=== PATIENT | female | born 1965 | race Caucasian/White ===

== ENCOUNTER 2017-10-24 19:06 | Emergency (ER) | payer BC ==
[2017-10-24] MEDS ORDERED: Diazepam TAB(*) 5 MG PO ONE (22:03)
[2017-10-24] MEDS ORDERED: Ketorolac INJ* 60 MG/2 ML VIAL IM ONE (22:03)
--- NOTE | 2017-10-24 22:39 | ED ---
Back Pain - HPI Summary HPI Summary: Patient here with pain across her lower back 2 days. She reports she was twisting and lifting yesterday when she had pain. This has persisted despite rest and ibuprofen. She is a history of straining her back in the past which improved with rest and time. She denies radiating symptoms of pain as well as numbness tingling or weakness and no change in bowel or bladder habits. She reports she is most comfortable lying flat on her back and has most pain when she is trying to transition from sitting to standing. - History of Current Complaint Chief Complaint: EDBackInjuryPain Stated Complaint: LOW BACK PAIN HEADACHE Time Seen by Provider: 10/24/17 21:43 Hx Obtained From: Patient Pain Intensity: 10 - Allergies/Home Medications Allergies/Adverse Reactions: Allergies Allergy/AdvReac Type Severity Reaction Status Date / Time codeine Allergy Nausea Verified 10/24/17 19:20 PMH/Surg Hx/FS Hx/Imm Hx Previously Healthy: Yes Endocrine/Hematology History: Denies: Hx Diabetes Cardiovascular History: Denies: Hx Hypertension, Hx Pacemaker/ICD Musculoskeletal History: Reports: Hx Back Problems - lumbar strain in 2013 - no residual issues Sensory History: Denies: Hx Hearing Aid Psychiatric History: Denies: Hx Panic Disorder - Cancer History Hx Chemotherapy: No Hx Radiation Therapy: No - Surgical History Surgery Procedure, Year, and Place: UTERINE ABLATION 1-2 YRS AGO; C SECTION X3 Infectious Disease History: No Infectious Disease History: Denies: Traveled Outside the [place] in Last 30 Days - Family History Known Family History: Positive: None - Social History Occupation: 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 Negative: Decreased ROM, Edema Skin: Negative Neurological: Negative Psychological: Normal All Other Systems Reviewed And Are Negative: Yes Physical Exam Triage Information Reviewed: Yes Vital Signs On Initial Exam: Initial Vitals Temp Pulse Resp BP Pulse Ox 99.9 F 104 20 122/74 99 10/24/17 19:18 10/24/17 19:18 10/24/17 19:18 10/24/17 19:18 10/24/17 19:18 Vital Signs Reviewed: Yes Appearance: Positive: Well-Appearing, Pain Distress, Obese Skin: Positive: Warm, Skin Color Reflects Adequate Perfusion, Dry Head/Face: Positive: Normal Head/Face Inspection Eyes: Positive: Normal, EOMI ENT: Positive: Hearing grossly normal Respiratory/Lung Sounds: Positive: Breath Sounds Present Cardiovascular: Positive: Normal, Pulses are Symmetrical in both Upper and Lower Extremities. Negative: Leg Edema Left, Leg Edema Right Abdomen Description: Positive: Nontender, Soft Musculoskeletal: Positive: Strength/ROM Intact - can move LE's, bear weight, Pain @ - soft tissues of lumbar region - no spinous pp tenderness Neurological: Positive: Normal, Sensory/Motor Intact, Alert, Oriented to Person Place, Time, CN Intact II-III Psychiatric: Positive: Normal Diagnostics - Vital Signs Vital Signs Temp Pulse Resp BP Pulse Ox 10/24/17 22:15 16 10/24/17 19:18 99.9 F 104 20 122/74 99 - Laboratory Lab Statement: Any lab studies that have been ordered have been reviewed, and results considered in the medical decision making process. Back Pain Course/Dx - Diagnoses Provider Diagnoses: Lumbar strain Discharge - Sign-Out/Discharge Documenting (check all that apply): Discharge/Admit/Transfer - Discharge Plan Condition: Stable Disposition: HOME Prescriptions: Cyclobenzaprine TAB* [Flexeril 10 MG TAB*] 10 mg PO TID PRN #15 tab PRN Reason: Pain Ibuprofen TAB* [Motrin TAB* 800 MG] 800 mg PO Q8HR PRN #20 tab PRN Reason: Pain Lidocaine PATCH 5%* [Lidoderm 5% Patch*] 1 patch TRANSDERM DAILY PRN #15 patch PRN Reason: Pain Patient Education Materials: Low Back Strain (ED) Referrals: Nam Santiago MD [Primary Care Provider] - - Billing Disposition and Condition Condition: STABLE Disposition: HOME
[2017-10-24] MEDS ORDERED: Lidocaine PATCH 5%* 1 PATCH TRANSDERM SCH (23:00)
[2017-10-24] MEDS ORDERED: Cyclobenzaprine TAB* 10 MG PO ONE (23:07)
[2017-10-24 23:43] VITALS: BP 130/95
== END 2017-10-24 23:42 | disposition home or self-care (01) ==
LOC: ED 19:06
DX: S39.012A Strain of muscle, fascia and tendon of lower back, initial encounter (principal); Z88.5 Allergy status to narcotic agent; X50.0XXA Overexertion from strenuous movement or load, initial encounter; Y92.9 Unspecified place or not applicable
CPT/HCPCS: 96372; 99282; A9270-GY; J1885

== ENCOUNTER 2018-06-02 19:48 | Emergency (ER) | payer BC, OTHER ==
[2018-06-02 20:12] VITALS: BP 156/80
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
== END 2018-06-02 20:20 | disposition home health service (06) ==
LOC: UCCORT 19:48
DX: S09.93XA Unspecified injury of face, initial encounter (principal); R10.84 Generalized abdominal pain; V47.0XXA Car driver injured in collision with fixed or stationary object in nontraffic accident, initial encounter; Y92.410 Unspecified street and highway as the place of occurrence of the external cause; Z88.5 Allergy status to narcotic agent; M06.9 Rheumatoid arthritis, unspecified
CPT/HCPCS: 99212; G0463

== ENCOUNTER 2018-06-28 18:04 | Emergency (ER) | payer BC, OTHER ==
--- OUTSIDE RECORDS SUMMARY | 2018-06-28 18:13 | XMS REPORT | Continuity of Care Document ---
:1965 External Reference #:[id number] Author Name Libertad Duenas Care Team Providers Name Role Phone Sang Stevens MD Care Team Information [employer] Unavailable Nam Santiago MD Primary Care Physician Unavailable Payers Type Date Identification Numbers Payment Provider Subscriber Onset: 2018 Policy Number: [id number] No Fault/Ck Harris Insurance PayID: [id number] [address] [address] [place] [address] Advance Directives Description No Information Available Problems Description No Information Family History Date Family Member(s) Problem(s) Comments Father due to Unknown Causes () - age 54 Mother due to Cancer () - age 71 First Sister due to Cancer () - age 54 Social History Type Date Description Comments Sex Unknown Tobacco Use Start: Unknown Never Smoked Cigarettes ETOH Use Current Alcohol Use - 1-3 Days A Week. Recreational Drug Use Denies Drug Use Allergies, Adverse Reactions, Alerts Date Description Reaction Status Severity Comments 06/04/2018 Codeine Nausea Active Medications Medication Date Status Form Strength Qnty SIG Indications Ordering Provider Methotrexate Active Tablets 2.5mg 8 tabs by Unknown 0 mouth every tues. Immunizations Description No Information Available Vital Signs Date Vital Result Comment 06/04/2018 8:24am Weight 221.00 lb Height 63 inches 5'3" BMI (Body Mass Index) 39.1 kg/m2 BP Systolic 117 mmHg BP Diastolic 85 mmHg Heart Rate 74 /min O2 % BldC Oximetry 99 % Body Temperature 97.3 F Pain Level 5 Results Description No Information Available Procedures Date Code Description Status 06/02/2018 [id number] Bone Mineral Density Test Completed 06/02/2018 [id number] Diabetic Retinal Eye Exam Completed 06/02/2018 [id number] Diabetic Foot Exam Completed Encounters Description No Information Available Plan of Treatment No Information Available
[2018-06-28 18:30] VITALS: BP 158/94
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
[2018-06-28] MEDS ORDERED: Ibuprofen TAB* 600 MG PO ONE (19:40)
--- NOTE | 2018-06-29 08:26 | UC ---
- Progress Note Progress Note: XR: IMPRESSION: Possible nondisplaced fracture involving the proximal pole of the right hand proximal pole second metacarpal. If the patient's symptoms persist, follow-up imaging is recommended. Pt was treated appropriately as there was a suspicion of fx at visit yesterday. No change in plan of care, but can call to let her know the final reading. Course/Dx - Diagnoses Provider Diagnoses: Sprain of right hand Discharge - Sign-Out/Discharge Documenting (check all that apply): Post-Discharge Follow Up All imaging exams completed and their final reports reviewed: Yes - Discharge Plan Condition: Stable Disposition: HOME Prescriptions: Ibuprofen TAB* [Motrin TAB* 600 MG] 400 mg PO Q8H PRN #30 tab PRN Reason: Pain Patient Education Materials: Hand Sprain (ED) Referrals: Sara Zaragoza MD [Medical Doctor] - Nam Santiago MD [Primary Care Provider] - Additional Instructions: Follow up with orthopedic surgeon next week. Seek medical attention for worse or new problems in the meantime. Elevate your hand frequently throughout the day. Xray will be read tomorrow (ie final result tomorrow). No obvious fracture, but there is a suspicious area in your index finger knuckle joint. Very important to follow up with orthopedic surgeon. Minimal movement (splint) - unless otherwise recommended by orthopedic surgeon. - Billing Disposition and Condition Condition: STABLE Disposition: Home
== END 2018-06-28 19:58 | disposition home or self-care (01) ==
LOC: UCEAST 18:04
DX: S63.91XD Sprain of unspecified part of right wrist and hand, subsequent encounter (principal); V49.9XXD Car occupant (driver) (passenger) injured in unspecified traffic accident, subsequent encounter; Z88.5 Allergy status to narcotic agent
CPT/HCPCS: 99213; A9270-GY; G0463

== ENCOUNTER 2018-12-08 18:30 | Emergency (ER) | payer BC, OTHER ==
[2018-12-08 18:44] VITALS: BP 134/78
[2018-12-08] MEDS ORDERED: Acetaminophen TAB* 325 MG PO ONE (18:50)
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
== END 2018-12-08 19:33 | disposition home or self-care (01) ==
LOC: UCEAST 18:30
DX: S92.351A Displaced fracture of fifth metatarsal bone, right foot, initial encounter for closed fracture (principal); X50.9XXA Other and unspecified overexertion or strenuous movements or postures, initial encounter; Y93.H9 Activity, other involving exterior property and land maintenance, building and construction; Y92.017 Garden or yard in single-family (private) house as the place of occurrence of the external cause; Y99.8 Other external cause status; Z88.5 Allergy status to narcotic agent
CPT/HCPCS: 99214; A9270-GY; G0463